=== PATIENT | female | born 2000 | race Two or more races ===

== ENCOUNTER 2022-04-03 18:26 | Emergency (ER) | payer MEDICAID ==
[~2022-04-03] VITALS: Ht 167.6 cm; Wt 68.9 kg
--- NOTE | 2022-04-03 19:01 | NUR ---
Patient is still for IV line insertion, blood draw, urine specimen and EKG. Nursing SBAR to NORMA Pack
--- NOTE | 2022-04-03 19:01 | NUR ---
Dr [email or web address], medical screening exam in progress
--- NOTE | 2022-04-03 19:05 | NUR ---
Received report from NORMA Louis.
[2022-04-03] MEDS ORDERED: METF-440 PO (19:08)
--- NOTE | 2022-04-03 19:13 | NUR ---
Patient ambulated to the bathroom with a steady gait. NAD noted.
[2022-04-03] MEDS ORDERED: KETOROLAC TROMETHAMINE 30 MG INJ IVP ONE (19:15)
[2022-04-03] MEDS ORDERED: IV NS 1000 ML 1,000 ML IV ONE (19:15)
[2022-04-03 19:21] LABS: *BILIRUBIN,URIN NEGATIVE (NEGATIVE); *BLOOD, URINE NEGATIVE (NEGATIVE); *CLARITY,URINE CLEAR (CLEAR); *COLOR,URINE YELLOW (YELLOW); *KETONES,URINE 4+ (NEGATIVE); *UROBILINOGEN,URINE 0.2 E.U./dl (NORMAL); LEUKOCYTE ESTERASE ,URINE NEGATIVE (NEGATIVE); NITRITE, URINE NEGATIVE (NEGATIVE); UGLUCOSE TRACE (NEGATIVE)
[2022-04-03] MEDS ORDERED: KETOROLAC TROMETHAMINE 30 MG INJ ONE (19:21)
[2022-04-03 19:24] LABS: *URINE HCG, QUAL NEG (NEGATIVE)
[2022-04-03 19:26] LABS: HEMATOCRIT 41.4 % (31.2-41.9); MEAN CORPUSCULAR HEMOGLOBIN 28.6 uug (24.7-32.8); MEAN CORPUSCULAR VOLUME 86.7 fL (75.5-95.3); PLATELET COUNT (AUTO) 188 K/uL (179-408)
[2022-04-03 19:39] LABS: CARBON DIOXIDE 24 mmol/L (21-32); CHLORIDE 101 mmol/L (98-107); CREATININE 0.6 mg/dL (0.6-1.3); GLUCOSE 202 mg/dL (74-106); POTASSIUM 3.4 mmol/L (3.5-5.1); UREA NITROGEN, BLOOD 10 mg/dL (7-18)
[2022-04-03 19:48] LABS: ALANINE AMINOTRANSFERASE 18 U/L (14-59); ALKALINE PHOSPHATASE 91 U/L (50-136); ASPARTATE AMINOTRANSFERASE 12 U/L (15-37); BILIRUBIN,DIRECT 0.1 mg/dL (0.0-0.2); BILIRUBIN,TOTAL 0.4 mg/dL (0.2-1.0); TOTAL PROTEIN, SERUM 8.6 g/dL (6.4-8.2)
[2022-04-03 19:57] LABS: THYROID STIMULATING HORMONE 1.972 mIU/mL (0.358-3.740)
--- NOTE | 2022-04-03 21:52 | NUR ---
IV removed. Catheter intact and site benign. Pressure and 4x4 gauze applied to site. No bleeding noted.
--- NOTE | 2022-04-03 21:54 | NUR ---
Patient discharged to home in stable condition WITH FRIEND TAKING PATIENT HOME. Written and verbal after care instructions given. Patient verbalizes understanding of instructions. Stressed follow up or return to ER for worsening s/s.
[2022-04-03 21:55] VITALS: BP 127/70
== END 2022-04-03 21:55 | disposition home or self-care (01) ==
LOC: ER 18:31
DX: E11.9 Type 2 diabetes mellitus without complications (principal)
CPT/HCPCS: 99284; 96374; 96361; 80076; 80048; 81003; 82550; 82962; 84703; 84443; 85025; 84484; 36415; 93005; 83605; J1885; J7040; A4663